=== PATIENT | female | born 1960 | race African-American/Black ===

== ENCOUNTER 2020-06-26 08:58 | Emergency (ER) | payer OTHER ==
[~2020-06-26] VITALS: Ht 160 cm; Wt 93.4 kg
[2020-06-26] MEDS ORDERED: SUPER THERAVIT1 EACH PO (10:30)
[2020-06-26 10:31] VITALS: BP 146/56
== END 2020-06-26 10:34 | disposition home or self-care (01) ==
LOC: ER 08:58
DX: M54.2 Cervicalgia (principal); M54.6 Pain in thoracic spine; Z79.899 Other long term (current) drug therapy; V49.9XXA Car occupant (driver) (passenger) injured in unspecified traffic accident, initial encounter; Y93.89 Activity, other specified; Y92.89 Other specified places as the place of occurrence of the external cause; Y99.8 Other external cause status

== ENCOUNTER → 2020-08-30 | Outpatient (CLI) | payer OTHER ==
[~2020-08-30] MED LIST: SUPER THERAVIT1 EACH PO
[2020-08-30 09:06] LABS: ABSOLUTE NEUTROPHILS 2.8 thou/uL (1.4-8.2); BASOPHILS 0.6 % (0.0-2.0); HEMATOCRIT 39.7 % (37.0-47.0); HEMOGLOBIN 12.8 gm/dL (12.0-15.0); LYMPHOCYTES 53.6 % (24.0-44.0); MCH 29.2 pg (26.0-34.0); MCHC 32.2 g/dL (28.0-37.0); MCV 90.7 fL (80.0-100.0); MONOCYTES 5.9 % (1.0-8.0); PLATELET COUNT 337 thou/uL (150-400); POLYS 38.9 % (36.0-66.0); RBC 4.37 mil/uL (4.20-5.00); RDW 14.1 % (10.5-14.5); WBC 7.1 thou/uL (4.0-11.0)
[2020-08-30 09:18] LABS: ALBUMIN 3.8 g/dL (3.4-5.0); ANION GAP 10 mmol/L (7-16); BUN 15 mg/dL (7-18); CALCIUM 9.9 mg/dL (8.5-10.1); CHLORIDE 105 mmol/L (98-107); CHOLESTEROL 219 mg/dL (<200); CO2 24 mmol/L (21-32); GLUCOSE 104 mg/dL (74-106); HDL CHOLESTEROL 44 mg/dL (>40); LDL CHOLESTEROL 160 mg/dL (<100); POTASSIUM 4.9 mmol/L (3.5-5.1); SGOT 18 U/L (15-37); SGPT 26 U/L (30-65); SODIUM 139 mmol/L (136-145); TOTAL BILIRUBIN 0.4 mg/dL (0.2-1.0); TOTAL PROTEIN 7.4 g/dL (6.4-8.2); TRIGLYCERIDE 76 mg/dL (<150); VLDL 15 mg/dL (<40)
[2020-08-30 21:06] LABS: GLYCOHEMOGLOBIN (HGB A1C) 6.2 % (4.8-5.6)
== END ==
LOC: RAD 08:19 → LAB 08:19
PROVIDERS: ATTEND Family Medicine
DX: Z12.31 Encounter for screening mammogram for malignant neoplasm of breast (principal); E78.5 Hyperlipidemia, unspecified; G47.33 Obstructive sleep apnea (adult) (pediatric); E66.01 Morbid (severe) obesity due to excess calories; Z68.36 Body mass index [BMI] 36.0-36.9, adult

== ENCOUNTER → 2020-09-11 | Outpatient (CLI) | payer OTHER | LOC: SJCVCIMAG 07:13 → SJCVC 12:50 → SJCVCIMAG 14:49 | PROVIDERS: ATTEND Nuclear Medicine Nuclear Cardiology | DX: I73.9 Peripheral vascular disease, unspecified (principal); M79.605 Pain in left leg; M79.604 Pain in right leg; Z79.899 Other long term (current) drug therapy; Z87.891 Personal history of nicotine dependence ==

== ENCOUNTER → 2020-09-12 | Outpatient (CLI) | payer OTHER | LOC: CAT 11:21 | PROVIDERS: ATTEND Internal Medicine Cardiovascular Disease | DX: Z13.6 Encounter for screening for cardiovascular disorders (principal); I25.10 Atherosclerotic heart disease of native coronary artery without angina pectoris; E78.00 Pure hypercholesterolemia, unspecified ==

== ENCOUNTER → 2020-09-14 | Outpatient (CLI) | payer OTHER | LOC: MRI 08:03 | PROVIDERS: ATTEND Family Medicine | DX: R51.9 Headache, unspecified (principal); H53.9 Unspecified visual disturbance; R42 Dizziness and giddiness ==

== ENCOUNTER → 2020-09-18 | Outpatient (CLI) | payer OTHER ==
[~2020-09-18] VITALS: Ht 160 cm; Wt 93.9 kg
[~2020-09-18] MED LIST changes: +FLAX OIL1000 MG PO; +LIPITOR10 MG PO; +OMEPRAZOLE40 MG PO; +PROAIR HFA8.5 GM INH; +PROBIOTIC1 EAC7 PO
[2020-09-18 07:09] VITALS: BP 139/69
[2020-09-18 07:27] LABS: HEMATOCRIT 37.9 % (37.0-47.0); HEMOGLOBIN 12.3 gm/dL (12.0-15.0); MCH 29.2 pg (26.0-34.0); MCHC 32.4 g/dL (28.0-37.0); MCV 90.1 fL (80.0-100.0); RBC 4.2 mil/uL (4.20-5.00); RDW 14.1 % (10.5-14.5); WBC 11.3 thou/uL (4.0-11.0)
[2020-09-18 07:51] LABS: CALCIUM 9.3 mg/dL (8.5-10.1); CREATININE 1.2 mg/dL (0.6-1.0); POTASSIUM 3.8 mmol/L (3.5-5.1)
--- NOTE | 2020-09-18 10:43 | CATHLAB ---
[facility] [place] [address] INVASIVE PROCEDURE REPORT Name: ALLAN CAST Room #: REG MEME Melly#: [id number] Admission: 09/18/20 Attend Phys: Cornelio Ewing MD Discharge: Date of : 64 Report #: [id number] THIS REPORT FOR: cc: Svetlana Oconnor MD, Nora P. MD Lundgren, Craig H. MD [facility] ~ APPROVED REPORT Study performed: 09/18/2020 09:18:39 Patient Details Patient Status: Out-Patient Room #: The patient is a 59 year-old female Event Personnel Rakesh Maya Wet Room Supervisor, Yanni Patel RTR Steven Ponce Ja'net RTR Monitor, Olivia Diaz RN chimney builder Performed Left Heart Cath w/or w/o Coronaries [id number] [facility] Art Access - R femoral artery* Hemostasis w/ Mynx Procedure Narrative The patient was brought electively to the Cardiac Catheterization Laboratory and was prepped and draped in a sterile manner. A SHEATH BRITE-TIP 6F X 11CM ([id number]) sheath was inserted into the LFA^. Coronary angiography was performed using coronary diagnostic catheters. The right coronary system was accessed and visualized with a JR4 catheter. The left coronary system was accessed and visualized with a JL4 catheter. The left ventricle was accessed and visualized with a PIGTAIL catheter. Left ventriculogram was performed in 30 degree projection. Closure device was deployed with a Fr MYNXGRIP 6/7F [id number]. The patient tolerated the procedure well and there were no complications associated with the procedure. There was no hematoma. This procedure followed an aortography with runoff by Dr. Ewing. Intraoperative Conscious Sedation Sedation start time: 8:11 Case end Time: 9:48 Fentanyl 175 mcg Versed 3.0 mg Fluoro Time: 10.30 minutes Dose: DAP 09796.21 cGycm2 1639 mGy [facility] [place] [address] INVASIVE PROCEDURE REPORT Name: ALLAN CAST Room #: REG [facility]#: [id number] Admission: 09/18/20 Attend Phys: Cornelio Ewing, Discharge: Date of : 64 Report #: [id number] Contrast Type and Amount: Visipaque 240 ml Coronary Angiography The patient's coronary anatomy is left dominant. Diagnostic Cath Left Main Normal left main LAD Normal left anterior descending Diagonal 1 Normal first diagonal Diagonal 2 Normal second diagonal Diagonal 3 Normal third diagonal Circumflex Normal dominant circumflex OM1 Normal OM1 L PDA Normal posterior descending branch Right Coronary Small nondominant right coronary Left Ventriculography The left ventricle is normal in size with normal contractility. The left ventricular ejection fraction is estimated to be 60-65%. Left ventricular wall motion abnormalities are not present. There is no mitral insufficiency. Hemodynamics The aortic pressure is 140/70 mmHg with a mean of 93 mmHg. The left ventricular pressure is 139/12 mmHg with a mean of mmHg. The left ventricular end diastolic pressure is 24 mmHg. Pullback from the left ventricle to the aorta revealed no gradient across the aortic valve. PCI Technique Lesion Percutaneous coronary intervention was performed on the Common iliac. Conclusion 1. Normal global and regional left ventricular systolic function. EF 65% 2. Normal left main 3. Normal coronary vasculature. Left coronary dominant circulation Recommendations [facility] <ELECTRONICALLY SIGNED> By: Rakesh Maya MD, FACC 09/18/20 1042 [id number] [id number] Rakesh Maya MD, FACC /INF
== END | disposition home or self-care (01) ==
LOC: CATH 06:52
PROVIDERS: ATTEND Nuclear Medicine Nuclear Cardiology
DX: I20.0 Unstable angina (principal); I70.211 Atherosclerosis of native arteries of extremities with intermittent claudication, right leg; I70.1 Atherosclerosis of renal artery; I10 Essential (primary) hypertension; E78.00 Pure hypercholesterolemia, unspecified; E78.5 Hyperlipidemia, unspecified; K21.9 Gastro-esophageal reflux disease without esophagitis; Z98.890 Other specified postprocedural states; Z79.899 Other long term (current) drug therapy; Z87.891 Personal history of nicotine dependence; Z82.49 Family history of ischemic heart disease and other diseases of the circulatory system

== ENCOUNTER → 2020-10-03 | Outpatient (CLI) | payer OTHER | LOC: LAB 12:18 | PROVIDERS: ATTEND Family Medicine | DX: Z01.812 Encounter for preprocedural laboratory examination (principal); Z20.822 Contact with and (suspected) exposure to COVID-19 ==

== ENCOUNTER → 2020-10-12 | Outpatient (CLI) | payer OTHER ==
[~2020-10-12] MED LIST changes: +ASA81BEC PO; +CRESTOR20 MG PO; +FISH OIL 1,0001 EAC9 PO; +PLAVIX 75 MG TA75 MG PO
== END ==
LOC: LAB 08:42
PROVIDERS: ATTEND Internal Medicine Gastroenterology
DX: Z01.812 Encounter for preprocedural laboratory examination (principal); Z20.822 Contact with and (suspected) exposure to COVID-19

== ENCOUNTER → 2020-10-17 | Outpatient (CLI) | payer OTHER ==
[~2020-10-17] VITALS: Ht 160 cm; Wt 93.0 kg
== END | disposition home or self-care (01) ==
LOC: GI
PROVIDERS: ATTEND Internal Medicine Gastroenterology
DX: Z12.11 Encounter for screening for malignant neoplasm of colon (principal); Z86.010 Personal history of colon polyps; K63.5 Polyp of colon; K57.30 Diverticulosis of large intestine without perforation or abscess without bleeding; K64.8 Other hemorrhoids; I73.9 Peripheral vascular disease, unspecified; E78.00 Pure hypercholesterolemia, unspecified; E78.5 Hyperlipidemia, unspecified; G47.33 Obstructive sleep apnea (adult) (pediatric); K21.9 Gastro-esophageal reflux disease without esophagitis; Z98.890 Other specified postprocedural states; Z79.899 Other long term (current) drug therapy; Z87.891 Personal history of nicotine dependence; Z20.822 Contact with and (suspected) exposure to COVID-19; Z98.51 Tubal ligation status
CPT/HCPCS: 62110; 62900

== ENCOUNTER → 2020-10-18 | Outpatient (CLI) | payer OTHER ==
--- NOTE | 2020-10-21 17:05 | SLE ---
[facility] [place] [address] POLYSOMNOGRAPHY STUDY Name: ALLAN CAST Room #: REG [facility]#: [id number] Admission: 10/18/20 Attend Phys: Jimmie Martinez MD Discharge: Date of : 64 Report #: [id number] THIS REPORT FOR: cc: Svetlana Oconnor MD, Nora P. MD Khan, Aman U. MD ~ DATE OF SERVICE: 10/18/2020 SLEEP STUDY REFERRING PHYSICIAN: Dr. Svetlana Oconnor. The patient is a 60-year-old who weighs 205 pounds with a BMI of 36. The patient's [place] score was 24 suggesting severe subjective hypersomnia. The patient underwent split night study performed at [facility]. During the night study, the patient spent 466 minutes in bed and slept for 4-5 minutes with a sleep efficiency of 87%. Sleep latency was 1.1 minutes with a REM latency of 361 minutes. Sleep architecture showed normal stage 1 sleep, increased stage 2 sleep, absent slow wave and reduced REM sleep, which was 8% of total sleep time. During the initial diagnostic portion of the study, the patient had 1 obstructive apnea, no mixed apneas, 8 central apneas and 60 hypopneas. The patient's AHI was 10.2 per hour with a REM AHI of 5.4 per hour and a supine AHI of 10.4 per hour. EKG monitoring revealed an average heart rate of 72 beats per minute. No sustained arrhythmias observed. No clinically significant PLM seen. Nocturnal oximetry study revealed an average oxygen saturation of 94% with the lowest of 74%. 8 minutes were spent with oxygen saturation of less than 89%. The patient met the criteria for CPAP initiation. It was started at 5 cm water and titrated up to 7 cm water. At the final pressure, the patient slept for 133 minutes. The patient had supine as well as REM sleep. The patient's AHI was reduced to only 4 per hour and oxygen saturation remained above 88%. IMPRESSION: 1. Mild obstructive sleep apnea at an AHI of 10.2 per hour. 2. Nocturnal hypoxia secondary to obstructive sleep apnea, but resolved with CPAP. 3. No clinically significant periodic limb movements. [facility] [address] [place] [address] POLYSOMNOGRAPHY STUDY Name: ALLAN CAST Room #: REG [facility]#: [id number] Admission: 10/18/20 Attend Phys: Jimmie Martinez MD Discharge: Date of : 64 Report #: [id number] RECOMMENDATIONS: 1. CPAP at 7 cm water completely eliminated the patient's sleep apnea and should be used on a nightly basis. 2. Follow up in 4-6 weeks to assess compliance with CPAP and to document clinical improvement. The patient has severe subjective hypersomnia with an [place] score of 24. If the patient's hypersomnia does not improve with CPAP, then the patient would require additional testing such as Multiple Sleep Latency test to rule out other coexisting disorders such as Narcolepsy. 3. Avoid INTEGRATION MANAGER depressants. 4. Cautioned regarding driving until the patient's hypersomnia is resolved. <ELECTRONICALLY SIGNED> By: Jimmie Martinez MD 10/21/20 1705 1347 1359 Jimmie Martinez MD /nt
== END ==
LOC: SLEEPLAB 09-23 10:53
PROVIDERS: ATTEND Internal Medicine Critical Care Medicine
DX: G47.33 Obstructive sleep apnea (adult) (pediatric) (principal); R09.02 Hypoxemia

== ENCOUNTER → 2020-11-29 | Outpatient (CLI) | payer OTHER ==
[2020-11-29 10:06] LABS: ABSOLUTE NEUTROPHILS 3.5 thou/uL (1.4-8.2); BASOPHILS 0.6 % (0.0-2.0); EOSINOPHILS 1.1 % (0.0-3.0); HEMATOCRIT 37.4 % (37.0-47.0); HEMOGLOBIN 12.2 gm/dL (12.0-15.0); LYMPHOCYTES 41.6 % (24.0-44.0); MCH 29.7 pg (26.0-34.0); MCHC 32.5 g/dL (28.0-37.0); MCV 91.4 fL (80.0-100.0); MONOCYTES 6.7 % (1.0-8.0); PLATELET COUNT 297 thou/uL (150-400); RBC 4.09 mil/uL (4.20-5.00); RDW 13.9 % (10.5-14.5)
[2020-11-29 10:22] LABS: CALCIUM 9.4 mg/dL (8.5-10.1); POTASSIUM 4.6 mmol/L (3.5-5.1); TOTAL BILIRUBIN 0.3 mg/dL (0.2-1.0); TOTAL PROTEIN 8.2 g/dL (6.4-8.2)
[2020-11-30 03:06] LABS: GLYCOHEMOGLOBIN (HGB A1C) 6.2 % (4.8-5.6)
== END ==
LOC: LAB 09:30
PROVIDERS: ATTEND Family Medicine
DX: E55.9 Vitamin D deficiency, unspecified (principal); R73.03 Prediabetes; R10.84 Generalized abdominal pain

== ENCOUNTER → 2020-12-20 | Outpatient (CLI) | payer OTHER | LOC: CAT 12-19 15:27 | PROVIDERS: ATTEND Family Medicine | DX: K57.30 Diverticulosis of large intestine without perforation or abscess without bleeding (principal); R14.0 Abdominal distension (gaseous) ==

== ENCOUNTER → 2020-12-21 | Outpatient (CLI) | payer OTHER | LOC: SJCVCIMAG 08:17 | PROVIDERS: ATTEND Nuclear Medicine Nuclear Cardiology | DX: I65.23 Occlusion and stenosis of bilateral carotid arteries (principal); I73.9 Peripheral vascular disease, unspecified; M79.604 Pain in right leg; M79.605 Pain in left leg; I77.9 Disorder of arteries and arterioles, unspecified; Z95.828 Presence of other vascular implants and grafts; Z87.891 Personal history of nicotine dependence ==

== ENCOUNTER → 2021-06-21 | Outpatient (CLI) | payer OTHER | LOC: SJCVCIMAG 09:08 | PROVIDERS: ATTEND Nuclear Medicine Nuclear Cardiology | DX: I73.9 Peripheral vascular disease, unspecified (principal); E78.5 Hyperlipidemia, unspecified; K21.9 Gastro-esophageal reflux disease without esophagitis; G47.33 Obstructive sleep apnea (adult) (pediatric); M79.605 Pain in left leg; M79.604 Pain in right leg; Z87.891 Personal history of nicotine dependence; Z72.89 Other problems related to lifestyle; Z79.82 Long term (current) use of aspirin; Z79.899 Other long term (current) drug therapy ==

== ENCOUNTER → 2021-07-09 | Outpatient (CLI) | payer OTHER | LOC: SJCVC 07:39 → SJCVCIMAG 07:47 → SJCVC 12:12 → SJCVCIMAG 16:06 | PROVIDERS: ATTEND Nuclear Medicine Nuclear Cardiology | DX: I08.1 Rheumatic disorders of both mitral and tricuspid valves (principal); R00.8 Other abnormalities of heart beat ==

== ENCOUNTER 2021-10-11 15:04 | Emergency (ER) | payer OTHER ==
[~2021-10-11] VITALS: Ht 160 cm; Wt 77.1 kg
[2021-10-11 15:40] LABS: BASOPHILS 0.4 % (0.0-2.0); EOSINOPHILS 0.1 % (0.0-3.0); HEMATOCRIT 37.6 % (37.0-47.0); HEMOGLOBIN 12.3 gm/dL (12.0-15.0); LYMPHOCYTES 16.9 % (24.0-44.0); MCH 29.2 pg (26.0-34.0); MCHC 32.8 g/dL (28.0-37.0); MCV 89.1 fL (80.0-100.0); MONOCYTES 4.3 % (1.0-8.0); PLATELET COUNT 250 thou/uL (150-400); POLYS 78.3 % (36.0-66.0); RBC 4.22 mil/uL (4.20-5.00); RDW 13.9 % (10.5-14.5); WBC 10.2 thou/uL (4.0-11.0)
[2021-10-11 15:51] LABS: CALCIUM 9.5 mg/dL (8.5-10.1); CREATININE 1.1 mg/dL (0.6-1.0); POTASSIUM 3.8 mmol/L (3.5-5.1)
[2021-10-11 15:57] LABS: URINE BILIRUBIN NEGATIVE (Negative); URINE BLOOD NEGATIVE (Negative); URINE CLARITY CLEAR; URINE COLOR YELLOW; URINE GLUCOSE-RANDOM* NEGATIVE (Negative); URINE KETONES NEGATIVE (Negative); URINE LEUKOCYTES-REFLEX NEGATIVE (Negative); URINE NITRITE-REFLEX NEGATIVE (Negative); URINE PROTEIN (DIPSTICK) NEGATIVE (Negative); URINE UROBILINOGEN 0.2 E.U./dl (0.2-1.0)
[2021-10-11 16:01] LABS: ALBUMIN 4.1 g/dL (3.4-5.0); TOTAL BILIRUBIN 0.3 mg/dL (0.2-1.0)
[2021-10-11 16:35] VITALS: BP 144/61
--- NOTE | 2021-10-12 08:06 | EKG ---
[address] [address] ELECTROCARDIOGRAM REPORT Name: ALLNA CAST Room #: [facility]#: [id number] Admission: 10/11/21 Attend Phys: Discharge: 10/11/21 Date of : 64 Report #: [id number] [facility] ED Test Date: 2021-10-11 Test Time: 15:13:52 Pat Name: ALLAN CAST Department: Room: Gender: Cork Tipper: : 1960 Requested By: Robbin Galvan Order Number: [id number] MD: Sherman Medellin Measurements Intervals [place] Rate: 97 P: 41 MI: 171 QRS: 20 QRSD: 95 T: 34 QT: 329 QTc: 418 Interpretive Statements Sinus rhythm Left atrial enlargement No previous ECG available for comparison Electronically Signed On 10-12-2021 8:06:36 DOFFER by Sherman Medellin [email or web address] <ELECTRONICALLY SIGNED> By: Sherman Medellin MD, [facility] 10/12/21 0806 1513 1513 Sherman Medellin MD, FACC /EPI
== END 2021-10-11 16:45 | disposition home or self-care (01) ==
LOC: ER 15:04
PROVIDERS: Physician Assistant
DX: R07.89 Other chest pain (principal); R22.41 Localized swelling, mass and lump, right lower limb; E78.00 Pure hypercholesterolemia, unspecified; Z98.890 Other specified postprocedural states; K21.9 Gastro-esophageal reflux disease without esophagitis; Z98.51 Tubal ligation status; Z79.82 Long term (current) use of aspirin; Z79.899 Other long term (current) drug therapy

== ENCOUNTER → 2021-10-26 | Outpatient (CLI) | payer OTHER | LOC: RAD 11:45 | PROVIDERS: ATTEND Family Medicine | DX: Z12.31 Encounter for screening mammogram for malignant neoplasm of breast (principal) ==